=== PATIENT | female | born 1985 | race Caucasian/White ===

== ENCOUNTER 2017-03-05 19:10 | Emergency (ER) | payer BC ==
[~2017-03-05] VITALS: Ht 170.2 cm; Wt 94.1 kg
[~2017-03-05 19:10] MED LIST: AUGMENTIN875 MG PO; B COMPLETE1 EACH PO; BUPROPION HCL100 M1 PO; CEFUROXIME500 MG PO; ERGOCALCIF50000 UNIT PO; ESCITALOPRAM OX20 MG PO; FIORICET,ESG1 TABLET PO; FISH OIL500 MG PO; MAGNESIUM OXID200 MG PO; NALTREXONE HCL50 MG PO; PROZAC40 MG PO; SPIRONOLACTONE50 MG PO; SYNTHROID175 MCG PO; SYNTHROID200 MCG PO; SYNTHROID25 MCG PO; VIBRAMYCIN100 MG PO; ZINC30 MG PO
[2017-03-05] MEDS ORDERED: RELPAX20 MG PO (23:37)
[2017-03-05 23:44] VITALS: BP 114/82
== END 2017-03-05 23:51 | disposition home or self-care (01) ==
LOC: EME 19:10
DX: G43.909 Migraine, unspecified, not intractable, without status migrainosus (principal)
CPT/HCPCS: 99281; 99284; J1200; J1885; J2765; J7030